=== PATIENT | female | born 1955 | race Caucasian/White ===

== ENCOUNTER 2021-05-11 22:49 | Observation (INO) ==
[2021-05-11] MEDS ORDERED: ACETAMINOPHEN 1,000 MG/100 ML VIAL IV STA (23:23)
[2021-05-11] MEDS ORDERED: SODIUM CHLORIDE 0.9% 1000ML 1,000 ML IV SCH (23:30)
[2021-05-12 00:06] LABS: Influenza A virus by PCR Negative (Negative); Influenza B virus by PCR Negative (Negative)
[2021-05-12 00:14] LABS: Basophils # (auto) 0.03 K/uL (0-0.2); Basophils % (auto) 0.2 %; Eosinophils # (auto) 0.12 K/uL (0-0.5); Eosinophils % (auto) 0.9 %; Hematocrit (blood only) 32.6 % (37-47); Hemoglobin 10.9 g/dL (12.0-16.0); Immature Granulocytes # (auto) 0.05 K/uL (0.00-0.02); Immature Granulocytes % (auto) 0.4 %; Lymphocytes # (auto) 1.26 K/uL (1.2-3.4); Mean Corpuscular Hemoglobin 30.7 pg (25-34); Mean Corpuscular Hgb Conc 33.4 g/dL (32-36); Mean Corpuscular Volume 91.8 fL (80-100); Mean Platelet Volume 8.5 fL (7.4-10.4); Monocytes % (auto) 7.1 %; Neutrophils # (auto) 10.29 K/uL (1.4-6.5); Neutrophils % (auto) 81.4 %; Platelet Count 611 K/uL (130-400); RDW Coefficient of Variation 16.1 % (11.5-14.5); RDW Standard Deviation 53.6 fL (36.4-46.3); Red Blood Count 3.55 M/uL (4.2-5.4); White Blood Count 12.65 K/uL (4.8-10.8)
[2021-05-12 00:24] LABS: Alanine Aminotransferase 48 U/L (12-78); Albumin Level 2.8 gm/dl (3.4-5.0); Aspartate Aminotransferase 16 U/L (15-37); BUN Creatinine Ratio 28.4 (10-20); Blood Urea Nitrogen 18 mg/dl (7-18); Calcium 9.5 mg/dl (8.5-10.1); Carbon Dioxide 26 mmol/L (21-32); Chloride 102 mmol/L (98-107); Creatinine Clr Calc Pharmacy 71.5 ml/min; Est GFR (African American) 107.8 ml/min; Glucose 139 mg/dl (70-99); Lipase 151 U/L (73-393); Magnesium 2.3 mg/dl (1.8-2.4); Potassium 4.1 mmol/L (3.5-5.1); Sodium 135 mmol/L (136-145)
[2021-05-12 00:25] LABS: Monotest Negative (Negative)
[2021-05-12 00:33] LABS: Albumin Globulin Ratio 0.6 (0.9-2); Alkaline Phosphatase 306 U/L (45-117); Bilirubin,Total 0.2 mg/dl (0.2-1); Globulin 4.9 gm/dl (2.5-4.0); Thyroid Stimulating Hormone < 0.005 uIu/ml (0.300-4.500); Total Protein 7.7 gm/dl (6.4-8.2); Troponin I < 0.015 ng/ml (0-0.045)
[2021-05-12 00:44] LABS: Procalcitonin 0.05 ng/ml (0-0.5)
[2021-05-12 00:50] LABS: T4 Free Thyroxine 5.93 ng/dl (0.8-1.6)
[2021-05-12 00:52] LABS: Lyme Ab IgG w/WB Rflx Negative (Negative); Lyme Ab IgM w/WB Rflx Negative (Negative)
[2021-05-12 01:14] LABS: Partial Thromboplastin Ratio 1.1; Partial Thromboplastin Time 28.9 Seconds (21.0-31.0); Prothrombin Time 10.6 Seconds (9.0-12.0)
[2021-05-12 01:15] LABS: Appearance Urine Clear (Clear); Bilirubin Urine Negative (Negative); Blood Urine Negative (Negative); Color Urine Yellow; Glucose Urine UA Negative (Negative); Ketones Urine Negative (Negative); Leukocyte Esterase Urine Negative (Negative); Nitrite Urine Negative (Negative); Protein Urine Negative (Negative); Specific Gravity Urine 1.005 (1.000-1.030); Urobilinogen Urine Negative (Negative); pH Urine 5.5 (4.5-7.5)
[2021-05-12 01:16] LABS: D Dimer 730 ug/L FEU (0-500)
[2021-05-12] MEDS ORDERED: MoRPHine SULFATE 4 MG/ML 1 ML CARP\\VIAL IV STA (01:53)
[2021-05-12] MEDS ORDERED: ONDANSETRON INJ 2 MG/ML 2 ML VIAL IV STA (01:53)
[2021-05-12 02:13] LABS: RBC Morphology Unremarkable
[2021-05-12] MEDS ORDERED: OPTIRAY 320 125ml IV ONE (02:27)
--- NOTE | 2021-05-12 04:22 | History & Physical Report ---
Date of Service May 12, 2021 Assessment & Plan (1) Elevated serum free T4 level: 66 yo F with persistent fevers, chills, abnormal lab findings undergoing workup for possible CLL. 1. Elevated Free T4 - TSH <0.0005, Free T4 5.93, Free T3 12.66 - Thyroid stimulating immunoglobulin, Thyroid antimicrosomal, Thyroglobulin antibody - unlikely thyroid storm given normal blood pressures. Not taking exogenous levothyroxine. - NM thyroid uptake scan ordered to evaluate for hot nodules. CT soft tissue negative for abnormal soft tissue mass. - ESR, CRP elevated -- autoimmune thyroiditis? vs persisting viral thyroiditis 2. Fever of unknown origin - Augmentin BID for presumed sinus/URI symptoms that have started clearing since yesterday - WBC elevated, UA negative, - lyme negative, anaplasma pending 3. Abnormal labs - elevated D-dimer --> CTA chest negative for PE - ESR and CRP elevations, see above for autoimmune workup - thrombocytosis -- chronic,undergoing workup. Patient had an appiontment with Dr. Negro of [facility] in february 2021 but unable to find a note from that visit in system. DVT ppx: lovenox FEN/GI: zofran, famotidine Code Status: Full Code Dispo: PCU (2) Fever: History of Present Illness 66 yo F [facility] patient undergoing workup for CLL/persistent thrombocytosis, with recent complaints of fever/chills/aches/ for the past 12 days. Recently started on augmentin for persistent fevers and chills. Says she's been feel her heart race more frequently, and gets short of breath when walking outside, when lifting things. extensive hx of persistent headaches, numbness and tingling in fingers due to raynauds. Primary Care Provider: Arnulfo Dolan MD Allergies Allergy/AdvReac Type Severity Reaction Status Date / Time bee venom protein (honey bee) Allergy Severe ITCHY Verified 05/12/21 00:32 HIVES ALL OVER, TONGUE SWELLED procaine [From Novocain] AdvReac Severe PALPITATIONS/ Verified 05/12/21 00:32 PASSED OUT Home Medications Medication Instructions Recorded Confirmed Type heyerao-uhtnnglrucixl-fqlgojyw 2 tab PO Q6H PRN 05/05/21 05/12/21 History [Excedrin Extra Strength] cholecalciferol (vitamin D3) 250 mcg PO Q OTHER DAY 05/05/21 05/12/21 History [Vitamin D3] multivitamin 1 tab PO DAILY 05/05/21 05/12/21 History vitamin B complex 1 tab PO DAILY 05/05/21 05/12/21 History albuterol sulfate 2 puff INHALATION Q6H PRN 05/12/21 05/12/21 History amoxicillin-pot clavulanate 1 tab PO BID 05/12/21 05/12/21 History [Augmentin] codeine-guaifenesin 5 ml PO Q4H PRN 05/12/21 05/12/21 History epinephrine [EpiPen 2-Renan] 0.3 mg IM DIRECTED PRN 05/12/21 05/12/21 History Past Med/Surg History Medical History No pertinent past medical history Surgical History No pertinent past surgical history Social History Smoking Status: Former smoker Second Hand Exposure: No; Hx Substance Use: No Preferred Language: Sammarinese Beliefs That Will Affect Care: None Current Living Situation: Spouse Other Information That Helps Us Care for You: No Feels Safe at Home: Yes Safety Concerns: Feels Safe At This Time Assistive Devices: Glasses Review of Systems Constitutional: + sweats and + fatigue; no fever and no chills Eyes: no blind spots, no discharge, no spots in vision and no worsening vision Respiratory: + cough; no dyspnea Cardiovascular: no chest pain, no dyspnea on exertion and no edema Gastrointestinal: + nausea, + vomiting and + diarrhea/loose stools; no abdominal pain, no constipation and no blood in stools Neurologic: + tingling, + numbness and + headache(s) Physical Exam Physical Exam: Constitutional: fatigued appearing, sitting comfortably in bed. Eyes: EOMI, pupils equal and reactive bilaterally, no scleral icterus Cardiac: RRR, no murmurs, gallops or rubs. Normal S1, S2 Pulm: CTA BL, no wheezes, rhonchi, crackles or rubs, moving air well throughout both lungs Abd: soft, nontender, nondistended, normal bowel sounds, no rebound or guarding Extremities: 2+ peripheral pulses, no edema Neuro: no focal deficits, moving all 4 limbs, A&Ox3 Results & Data Results & Data ([facility]) Vital Signs (Past 12 Hours) Vital Signs Temp Pulse Pulse Resp BP BP Pulse Ox 05/12/21 04:16 82 20 125/77 95 05/12/21 02:44 96 H 20 112/64 94 05/12/21 02:04 110 H 20 126/83 97 05/12/21 01:31 102 H 20 109/55 L 98 05/12/21 00:58 98 H 20 100/54 L 99 05/12/21 00:14 94 H 20 117/67 98 05/11/21 23:43 98 05/11/21 23:42 113 H 20 105/75 98 05/11/21 22:53 36.3 C L 131 H 16 134/73 94 Laboratory Results WBC 12.65 K/uL (4.8-10.8) H 05/11/21 23:37 RBC 3.55 M/uL (4.2-5.4) L 05/11/21 23:37 Hgb 10.9 g/dL (12.0-16.0) L 05/11/21 23:37 Hct 32.6 % (37-47) L 05/11/21 23:37 MCV 91.8 fL (80-100) 05/11/21 23:37 MCH 30.7 pg (25-34) 05/11/21 23:37 MCHC 33.4 g/dL (32-36) 05/11/21 23:37 RDW Std Deviation 53.6 fL (36.4-46.3) H 05/11/21 23:37 RDW Coeff of Kavon 16.1 % (11.5-14.5) H 05/11/21 23:37 Plt Count 611 K/uL (130-400) H 05/11/21 23:37 MPV 8.5 fL (7.4-10.4) 05/11/21 23:37 Immature Gran % (Auto) 0.4 % 05/11/21 23:37 Neut % (Auto) 81.4 % 05/11/21 23:37 Lymph % (Auto) 10.0 % 05/11/21 23:37 [place] % (Auto) 7.1 % 05/11/21 23:37 Eos % (Auto) 0.9 % 05/11/21 23:37 Baso % (Auto) 0.2 % 05/11/21 23:37 Neut # (Auto) 10.29 K/uL (1.4-6.5) H 05/11/21 23:37 Lymph # (Auto) 1.26 K/uL (1.2-3.4) 05/11/21 23:37 [place] # (Auto) 0.90 K/uL (0.11-0.59) H 05/11/21 23:37 Eos # (Auto) 0.12 K/uL (0-0.5) 05/11/21 23:37 Baso # (Auto) 0.03 K/uL (0-0.2) 05/11/21 23:37 Immature Gran # (Auto) 0.05 K/uL (0.00-0.02) H 05/11/21 23:37 RBC Morphology Unremarkable 05/11/21 23:37 ESR 121 mm/hr (0-30) H 05/11/21 23:37 PT 10.6 Seconds (9.0-12.0) 05/11/21 23:37 INR 1.0 (0.9-1.1) 05/11/21 23:37 APTT 28.9 Seconds (21.0-31.0) 05/11/21 23:37 PTT Ratio 1.1 05/11/21 23:37 D-Dimer 730 ug/L FEU (0-500) H* 05/11/21 23:37 Sodium 135 mmol/L (136-145) L 05/11/21 23:37 Potassium 4.1 mmol/L (3.5-5.1) 05/11/21 23:37 Chloride 102 mmol/L (98-107) 05/11/21 23:37 Carbon Dioxide 26 mmol/L (21-32) 05/11/21 23:37 Anion Gap 6.0 (3-11) 05/11/21 23:37 BUN 18 mg/dl (7-18) 05/11/21 23:37 Creatinine 0.64 mg/dl (0.6-1.2) 05/11/21 23:37 Est Cr Clr Drug Dosing 71.5 ml/min 05/11/21 23:37 Est GFR ( Amer) 107.8 ml/min 05/11/21 23:37 Est GFR (Non-Af Amer) 93.0 ml/min 05/11/21 23:37 BUN/Creatinine Ratio 28.4 (10-20) H 05/11/21 23:37 Glucose 139 mg/dl (70-99) H 05/11/21 23:37 Lactate 0.8 mmol/L (0.4-2.0) 05/11/21 23:37 Calcium 9.5 mg/dl (8.5-10.1) 05/11/21 23:37 Magnesium 2.3 mg/dl (1.8-2.4) 05/11/21 23:37 Total Bilirubin 0.2 mg/dl (0.2-1) 05/11/21 23:37 AST 16 U/L (15-37) 05/11/21 23:37 ALT 48 U/L (12-78) 05/11/21 23:37 Alkaline Phosphatase 306 U/L (45-117) H 05/11/21 23:37 Troponin I < 0.015 ng/ml (0-0.045) 05/11/21 23:37 C-Reactive Protein 11.70 mg/dl (0-0.29) H 05/11/21 23:37 Total Protein 7.7 gm/dl (6.4-8.2) 05/11/21 23:37 Albumin 2.8 gm/dl (3.4-5.0) L 05/11/21 23:37 Globulin 4.9 gm/dl (2.5-4.0) H 05/11/21 23:37 Albumin/Globulin Ratio 0.6 (0.9-2) L 05/11/21 23:37 Lipase 151 U/L (73-393) 05/11/21 23:37 Procalcitonin 0.05 ng/ml (0-0.5) 05/11/21 23:37 TSH < 0.005 uIu/ml (0.300-4.500) L 05/11/21 23:37 Free T4 5.93 ng/dl (0.8-1.6) H 05/11/21 23:37 Free T3 12.66 pg/ml (2.3-4.2) H 05/11/21 23:37 Urine Color Yellow 05/12/21 01:00 Urine Appearance Clear (Clear) 05/12/21 01:00 Urine pH 5.5 (4.5-7.5) 05/12/21 01:00 Ur Specific [place] 1.005 (1.000-1.030) 05/12/21 01:00 Urine Protein Negative (Negative) 05/12/21 01:00 Urine Glucose (UA) Negative (Negative) 05/12/21 01:00 Urine Ketones Negative (Negative) 05/12/21 01:00 Urine Blood Negative (Negative) 05/12/21 01:00 Urine Nitrite Negative (Negative) 05/12/21 01:00 Urine Bilirubin Negative (Negative) 05/12/21 01:00 Urine Urobilinogen Negative (Negative) 05/12/21 01:00 Ur Leukocyte Esterase Negative (Negative) 05/12/21 01:00 Anaplasma Smear See Comment 05/11/21 23:37 Lyme Disease IgG Ab Cancelled 05/11/21 23:37 Lyme Disease IgG Ab Negative (Negative) 05/11/21 23:37 Lyme Disease IgM Ab Cancelled 05/11/21 23:37 Lyme Disease IgM Ab Negative (Negative) 05/11/21 23:37 COVID-19 Eval Order Covid19 at [facility] 05/11/21 23:41 SARS-CoV-2 (PCR) NEGATIVE (Negative) 05/11/21 23:41 Monoscreen Cancelled 05/11/21 23:37 Monoscreen Negative (Negative) 05/11/21 23:37 Influ A Molecular Assay Negative (Negative) 05/11/21 23:41 Influ B Molecular Assay Negative (Negative) 05/11/21 23:41 Supervising Physician Co-Signing Physician Notes Attending addendum: I have physically seen this patient, have supervised the medical residents activities, and agree with the H&P unless as otherwise noted. Assessment and Plan: Hyperthyroidism/thyrotoxicosis- TSH less than 0.005, free T4 5.93, free T3 12.66 Differential includes: Viral thyroiditis/Elvin's/Graves'/other CT scan soft tissues neck was negative Order ultrasound of thyroid and thyroid uptake scan Start methimazole after the above tests Patient did have what sounds like a viral prodrome. Will need a follow-up endocrinology appointment Remaining orders and notations as noted Resident Activity Tracking Resident Involvement: Resident Care Provided Care Provided: [facility]
--- NOTE | 2021-05-12 05:49 | Emergency Department Note ---
History of Present Illness General Chief complaint: Fever Stated complaint: FEVER Time Seen by Provider: 05/11/21 23:08 History of Present Illness Maximum Pain Intensity: 2 This is a 66-year-old female presenting to the emergency department for evaluation of ongoing and persistent fever symptoms for the past 12 days. The patient was initially seen and evaluated in this department with similar complaints 1 week ago. At that visit the patient had a normal white blood cell count, mildly atypical thyroid function studies, negative Covid, and unremarkable chest x-ray. She was started on Zithromax and given Tessalon Perles. The patient followed up with her primary care physician's office this week, where she was transitioned to Augmentin and given cough medicine. Her PCP did help get her a follow-up appointment with endocrinology regarding her thyroid. The patient feels like the Augmentin is giving her diarrhea. She returns to the emergency department tonight with reports of having a fever of 103.0 F at home. The patient lives in [place], and took Advil before getting i n the car with her and coming to this facility. Upon arrival her fever is resolved, but she continues with a racing heart rate. The patient continues with some vague chest discomfort but no significant abdominal pain. There is reports of some mild headache which is common for her. The patient does not have any known exposures to disease. She rates her overall discomfort an 8/10. Home Medications Medication Instructions Recorded Confirmed Type hhdmnxi-xydycldiftchi-rhekwpmx 2 tab PO Q6H PRN 05/05/21 05/12/21 History [Excedrin Extra Strength] cholecalciferol (vitamin D3) 250 mcg PO Q OTHER DAY 05/05/21 05/12/21 History [Vitamin D3] multivitamin 1 tab PO DAILY 05/05/21 05/12/21 History vitamin B complex 1 tab PO DAILY 05/05/21 05/12/21 History albuterol sulfate 2 puff INHALATION Q6H PRN 05/12/21 05/12/21 History amoxicillin-pot clavulanate 1 tab PO BID 05/12/21 05/12/21 History [Augmentin] codeine-guaifenesin 5 ml PO Q4H PRN 05/12/21 05/12/21 History epinephrine [EpiPen 2-Renan] 0.3 mg IM DIRECTED PRN 05/12/21 05/12/21 History Allergies Allergy/AdvReac Type Severity Reaction Status Date / Time bee venom protein (honey bee) Allergy Severe ITCHY Verified 05/12/21 00:32 HIVES ALL OVER, TONGUE SWELLED procaine [From Novocain] AdvReac Severe PALPITATIONS/ Verified 05/12/21 00:32 PASSED OUT Past Med/Surg History Medical History No pertinent past medical history Surgical History No pertinent past surgical history Social History Smoking Status: Former smoker Second Hand Exposure: No; Hx Substance Use: No Preferred Language: Serbian Beliefs That Will Affect Care: None Current Living Situation: Spouse Other Information That Helps Us Care for You: No Feels Safe at Home: Yes Safety Concerns: Feels Safe At This Time Assistive Devices: Contacts Review of Systems A total of 10 systems reviewed and were otherwise negative Physical Exam Vital Signs Vital Signs - 24 hr 05/11/21 22:53 05/11/21 23:42 05/11/21 23:43 Temperature 36.3 C L Temperature Source Temporal Artery Scan Pulse Rate 131 H Pulse Rate [Bilateral Apical] 113 H Pulse Rhythm Regular Pulse Strength Normal Respiratory Rate 16 20 Respiratory Effort / Characteristics Non-Labored Respiratory Depth Normal Respiratory Pattern Regular Blood Pressure 134/73 Blood Pressure [Left Arm] 105/75 Blood Pressure Mean 93 Blood Pressure Mean [Left Arm] 85 Blood Pressure Position Sitting Pulse Oximetry 94 98 98 Oxygen Delivery Method Room Air Room Air Sepsis Recent Fever Within 48 Hours Yes Sepsis New/Unexplained Change in Mental Status N/A Sepsis Action Taken by Nursing No Action Required 05/12/21 00:14 05/12/21 00:58 05/12/21 01:31 Temperature Temperature Source Pulse Rate Pulse Rate [Bilateral Apical] 94 H 98 H 102 H Pulse Rhythm Pulse Strength Respiratory Rate 20 20 20 Respiratory Effort / Characteristics Respiratory Depth Respiratory Pattern Blood Pressure Blood Pressure [Left Arm] 117/67 100/54 L 109/55 L Blood Pressure Mean Blood Pressure Mean [Left Arm] 83 69 73 Blood Pressure Position Pulse Oximetry 98 99 98 Oxygen Delivery Method Sepsis Recent Fever Within 48 Hours Sepsis New/Unexplained Change in Mental Status Sepsis Action Taken by Nursing 05/12/21 02:04 05/12/21 02:44 Temperature Temperature Source Pulse Rate Pulse Rate [Bilateral Apical] 110 H 96 H Pulse Rhythm Pulse Strength Respiratory Rate 20 20 Respiratory Effort / Characteristics Respiratory Depth Respiratory Pattern Blood Pressure Blood Pressure [Left Arm] 126/83 112/64 Blood Pressure Mean Blood Pressure Mean [Left Arm] 97 80 Blood Pressure Position Pulse Oximetry 97 94 Oxygen Delivery Method Room Air Room Air Sepsis Recent Fever Within 48 Hours Sepsis New/Unexplained Change in Mental Status Sepsis Action Taken by Nursing VITALS: Vitals are noted on the nurse's note and reviewed by myself. Vital signs with noted tachycardia GENERAL: Well-developed, well-nourished, white female who appears mildly ill but not toxic. She is answering questions appropriately and is cooperative with the examination. NECK: Supple without nuchal rigidity. No lymphadenopathy. No thyromegaly. Cervical spine is nontender. HEART: Regular rate and rhythm without murmurs gallops or rubs. LUNGS: Clear to auscultation bilaterally without wheezes, rales or rhonchi. No retractions or accessory muscle use. ABDOMEN: Positive normal bowel sounds x 4. Soft, nontender, without masses or organomegaly. No guarding or rebound tenderness. MUSCULOSKELETAL: No muscle atrophy, erythema, or edema noted. Full range of motion in all extremities. NEURO: Patient was alert and oriented to person place and time. CN II through XII grossly intact. Course Administered Medications Doxycycline Hyclate (Doxycycline Hyclate 100 Mg Cap) 100 mg PO BID JOAN Stop: 05/14/21 09:44 Last Admin: 05/12/21 20:42 Dose: 100 mg Documented by: [id number] Admin: 05/12/21 11:25 Dose: 100 mg Documented by: [id number] Metoprolol Tartrate (Metoprolol Tartrate 25 Mg Tab) 25 mg PO Q8H JOAN Stop: 06/11/21 15:59 Last Admin: 05/12/21 16:47 Dose: 25 mg Documented by: [id number] Ondansetron HCl (Ondansetron Inj 2 Mg/Ml 2 Ml Vial) 4 mg IV Q4H PRN PRN Reason: Nausea Stop: 06/11/21 11:25 Last Admin: 05/12/21 12:01 Dose: 4 mg Documented by: [id number] Discontinued Medications Amoxicillin/Clavulanate Potassium (Amoxicillin/Clavulanate 875 Mg Tab) 1 tab PO BIDM [facility] Stop: 05/17/21 17:01 Last Admin: 05/12/21 09:18 Dose: Not Given Documented by: [id number] Sodium Chloride (Nss 1000ml) 1,000 mls @ 999 mls/hr IV .Q1H1M JOAN Stop: 05/12/21 00:30 Last Infusion: 05/12/21 00:49 Dose: 0 mls/hr Documented by: [id number] Admin: 05/11/21 23:46 Dose: 999 mls/hr Documented by: [id number] Acetaminophen ([facility]) 1,000 mg in 100 mls @ 400 mls/hr IV NOW STA Stop: 05/11/21 23:37 Last Infusion: 05/12/21 00:15 Dose: 0 mls/hr Documented by: [id number] Admin: 05/11/21 23:46 Dose: 400 mls/hr Documented by: [id number] Ioversol (Optiray 320 125ml) 120 ml IV ONCE ONE Stop: 05/12/21 02:28 Last Admin: 05/12/21 02:28 Dose: 120 ml Documented by: [id number] Metoprolol Tartrate (Metoprolol Tartrate 25 Mg Tab) 25 mg PO QAM [facility] Stop: 06/11/21 09:44 Last Admin: 05/12/21 11:24 Dose: 25 mg Documented by: [id number] Morphine Sulfate (Morphine Sulfate 4 Mg/Ml 1 Ml Carp\Vial) 4 mg IV NOW STA Stop: 05/12/21 01:54 Last Admin: 05/12/21 02:02 Dose: 4 mg Documented by: [id number] Ondansetron HCl (Ondansetron Inj 2 Mg/Ml 2 Ml Vial) 4 mg IV NOW STA Stop: 05/12/21 01:54 Last Admin: 05/12/21 02:02 Dose: 4 mg Documented by: [id number] Medical Decision Making Differential Diagnosis Differential diagnosis includes, but is not limited to: Viral illness, COVID-19, sepsis, autoimmune disease, myocardial infarction, dysrhythmia, pericarditis, pneumothorax, aortic aneurysm/dissection, DVT/PE, anxiety, GERD, PUD, electrolyte imbalance, thyroid disorder, pneumonia, bronchitis, pancreatitis, and others Laboratory Data Result diagrams: 05/12/21 06:38 05/12/21 06:38 Lab Results 05/11/21 05/11/21 05/11/21 Range/Units 23:37 23:37 23:37 WBC 12.65 H (4.8-10.8) K/uL RBC 3.55 L (4.2-5.4) M/uL Hgb 10.9 L (12.0-16.0) g/dL Hct 32.6 L (37-47) % MCV 91.8 (80-100) fL MCH 30.7 (25-34) pg MCHC 33.4 (32-36) g/dL RDW Std Deviation 53.6 H (36.4-46.3) fL RDW Coeff of Kavon 16.1 H (11.5-14.5) % Plt Count 611 H (130-400) K/uL MPV 8.5 (7.4-10.4) fL Immature Gran % (Auto) 0.4 % Neut % (Auto) 81.4 % Lymph % (Auto) 10.0 % [place] % (Auto) 7.1 % Eos % (Auto) 0.9 % Baso % (Auto) 0.2 % Neut # (Auto) 10.29 H (1.4-6.5) K/uL Lymph # (Auto) 1.26 (1.2-3.4) K/uL [place] # (Auto) 0.90 H (0.11-0.59) K/uL Eos # (Auto) 0.12 (0-0.5) K/uL Baso # (Auto) 0.03 (0-0.2) K/uL Immature Gran # (Auto) 0.05 H (0.00-0.02) K/uL RBC Morphology Unremarkable ESR (0-30) mm/hr PT 10.6 (9.0-12.0) Seconds INR 1.0 (0.9-1.1) APTT 28.9 (21.0-31.0) Seconds PTT Ratio 1.1 D-Dimer 730 H* (0-500) ug/L FEU Sodium 135 L (136-145) mmol/L Potassium 4.1 (3.5-5.1) mmol/L Chloride 102 (98-107) mmol/L Carbon Dioxide 26 (21-32) mmol/L Anion Gap 6.0 (3-11) BUN 18 (7-18) mg/dl Creatinine 0.64 (0.6-1.2) mg/dl Est Cr Clr Drug Dosing 71.5 ml/min Est GFR ( Amer) 107.8 ml/min Est GFR (Non-Af Amer) 93.0 ml/min BUN/Creatinine Ratio 28.4 H (10-20) Glucose 139 H (70-99) mg/dl Lactate (0.4-2.0) mmol/L Calcium 9.5 (8.5-10.1) mg/dl Magnesium 2.3 (1.8-2.4) mg/dl Total Bilirubin 0.2 (0.2-1) mg/dl AST 16 (15-37) U/L ALT 48 (12-78) U/L Alkaline Phosphatase 306 H (45-117) U/L Troponin I < 0.015 (0-0.045) ng/ml C-Reactive Protein 11.70 H (0-0.29) mg/dl Total Protein 7.7 (6.4-8.2) gm/dl Albumin 2.8 L (3.4-5.0) gm/dl Globulin 4.9 H (2.5-4.0) gm/dl Albumin/Globulin Ratio 0.6 L (0.9-2) Lipase 151 (73-393) U/L Procalcitonin (0-0.5) ng/ml TSH < 0.005 L (0.300-4.500) uIu/ml Free T4 5.93 H (0.8-1.6) ng/dl Free T3 (2.3-4.2) pg/ml Urine Color Urine Appearance (Clear) Urine pH (4.5-7.5) Ur Specific [place] (1.000-1.030) Urine Protein (Negative) Urine Glucose (UA) (Negative) Urine Ketones (Negative) Urine Blood (Negative) Urine Nitrite (Negative) Urine Bilirubin (Negative) Urine Urobilinogen (Negative) Ur Leukocyte Esterase (Negative) Anaplasma Smear See Comment Lyme Disease IgG Ab Lyme Disease IgM Ab COVID-19 Eval Order SARS-CoV-2 (PCR) (Negative) Monoscreen Influ A Molecular Assay (Negative) Influ B Molecular Assay (Negative) 05/11/21 05/11/21 05/11/21 Range/Units 23:37 23:37 23:37 WBC (4.8-10.8) K/uL RBC (4.2-5.4) M/uL Hgb (12.0-16.0) g/dL Hct (37-47) % MCV (80-100) fL MCH (25-34) pg MCHC (32-36) g/dL RDW Std Deviation (36.4-46.3) fL RDW Coeff of Kavon (11.5-14.5) % Plt Count (130-400) K/uL MPV (7.4-10.4) fL Immature Gran % (Auto) % Neut % (Auto) % Lymph % (Auto) % [place] % (Auto) % Eos % (Auto) % Baso % (Auto) % Neut # (Auto) (1.4-6.5) K/uL Lymph # (Auto) (1.2-3.4) K/uL [place] # (Auto) (0.11-0.59) K/uL Eos # (Auto) (0-0.5) K/uL Baso # (Auto) (0-0.2) K/uL Immature Gran # (Auto) (0.00-0.02) K/uL RBC Morphology ESR 121 H (0-30) mm/hr PT (9.0-12.0) Seconds INR (0.9-1.1) APTT (21.0-31.0) Seconds PTT Ratio D-Dimer (0-500) ug/L FEU Sodium (136-145) mmol/L Potassium (3.5-5.1) mmol/L Chloride (98-107) mmol/L Carbon Dioxide (21-32) mmol/L Anion Gap (3-11) BUN (7-18) mg/dl Creatinine (0.6-1.2) mg/dl Est Cr Clr Drug Dosing ml/min Est GFR ( Amer) ml/min Est GFR (Non-Af Amer) ml/min BUN/Creatinine Ratio (10-20) Glucose (70-99) mg/dl Lactate 0.8 (0.4-2.0) mmol/L Calcium (8.5-10.1) mg/dl Magnesium (1.8-2.4) mg/dl Total Bilirubin (0.2-1) mg/dl AST (15-37) U/L ALT (12-78) U/L Alkaline Phosphatase (45-117) U/L Troponin I (0-0.045) ng/ml C-Reactive Protein (0-0.29) mg/dl Total Protein (6.4-8.2) gm/dl Albumin (3.4-5.0) gm/dl Globulin (2.5-4.0) gm/dl Albumin/Globulin Ratio (0.9-2) Lipase (73-393) U/L Procalcitonin (0-0.5) ng/ml TSH (0.300-4.500) uIu/ml Free T4 (0.8-1.6) ng/dl Free T3 (2.3-4.2) pg/ml Urine Color Urine Appearance (Clear) Urine pH (4.5-7.5) Ur Specific [place] (1.000-1.030) Urine Protein (Negative) Urine Glucose (UA) (Negative) Urine Ketones (Negative) Urine Blood (Negative) Urine Nitrite (Negative) Urine Bilirubin (Negative) Urine Urobilinogen (Negative) Ur Leukocyte Esterase (Negative) Anaplasma Smear Lyme Disease IgG Ab Cancelled Lyme Disease IgM Ab Cancelled COVID-19 Eval Order SARS-CoV-2 (PCR) (Negative) Monoscreen Cancelled Influ A Molecular Assay (Negative) Influ B Molecular Assay (Negative) 05/11/21 05/11/21 05/11/21 Range/Units 23:37 23:37 23:41 WBC (4.8-10.8) K/uL RBC (4.2-5.4) M/uL Hgb (12.0-16.0) g/dL Hct (37-47) % MCV (80-100) fL MCH (25-34) pg MCHC (32-36) g/dL RDW Std Deviation (36.4-46.3) fL RDW Coeff of Kavon (11.5-14.5) % Plt Count (130-400) K/uL MPV (7.4-10.4) fL Immature Gran % (Auto) % Neut % (Auto) % Lymph % (Auto) % [place] % (Auto) % Eos % (Auto) % Baso % (Auto) % Neut # (Auto) (1.4-6.5) K/uL Lymph # (Auto) (1.2-3.4) K/uL [place] # (Auto) (0.11-0.59) K/uL Eos # (Auto) (0-0.5) K/uL Baso # (Auto) (0-0.2) K/uL Immature Gran # (Auto) (0.00-0.02) K/uL RBC Morphology ESR (0-30) mm/hr PT (9.0-12.0) Seconds INR (0.9-1.1) APTT (21.0-31.0) Seconds PTT Ratio D-Dimer (0-500) ug/L FEU Sodium (136-145) mmol/L Potassium (3.5-5.1) mmol/L Chloride (98-107) mmol/L Carbon Dioxide (21-32) mmol/L Anion Gap (3-11) BUN (7-18) mg/dl Creatinine (0.6-1.2) mg/dl Est Cr Clr Drug Dosing ml/min Est GFR ( Amer) ml/min Est GFR (Non-Af Amer) ml/min BUN/Creatinine Ratio (10-20) Glucose (70-99) mg/dl Lactate (0.4-2.0) mmol/L Calcium (8.5-10.1) mg/dl Magnesium (1.8-2.4) mg/dl Total Bilirubin (0.2-1) mg/dl AST (15-37) U/L ALT (12-78) U/L Alkaline Phosphatase (45-117) U/L Troponin I (0-0.045) ng/ml C-Reactive Protein (0-0.29) mg/dl Total Protein (6.4-8.2) gm/dl Albumin (3.4-5.0) gm/dl Globulin (2.5-4.0) gm/dl Albumin/Globulin Ratio (0.9-2) Lipase (73-393) U/L Procalcitonin 0.05 (0-0.5) ng/ml TSH (0.300-4.500) uIu/ml Free T4 (0.8-1.6) ng/dl Free T3 12.66 H (2.3-4.2) pg/ml Urine Color Urine Appearance (Clear) Urine pH (4.5-7.5) Ur Specific [place] (1.000-1.030) Urine Protein (Negative) Urine Glucose (UA) (Negative) Urine Ketones (Negative) Urine Blood (Negative) Urine Nitrite (Negative) Urine Bilirubin (Negative) Urine Urobilinogen (Negative) Ur Leukocyte Esterase (Negative) Anaplasma Smear Lyme Disease IgG Ab Negative Lyme Disease IgM Ab Negative COVID-19 Eval Order SARS-CoV-2 (PCR) (Negative) Monoscreen Negative Influ A Molecular Assay Negative (Negative) Influ B Molecular Assay Negative (Negative) 05/11/21 05/11/21 05/12/21 Range/Units 23:41 23:41 01:00 WBC (4.8-10.8) K/uL RBC (4.2-5.4) M/uL Hgb (12.0-16.0) g/dL Hct (37-47) % MCV (80-100) fL MCH (25-34) pg MCHC (32-36) g/dL RDW Std Deviation (36.4-46.3) fL RDW Coeff of Kavon (11.5-14.5) % Plt Count (130-400) K/uL MPV (7.4-10.4) fL Immature Gran % (Auto) % Neut % (Auto) % Lymph % (Auto) % [place] % (Auto) % Eos % (Auto) % Baso % (Auto) % Neut # (Auto) (1.4-6.5) K/uL Lymph # (Auto) (1.2-3.4) K/uL [place] # (Auto) (0.11-0.59) K/uL Eos # (Auto) (0-0.5) K/uL Baso # (Auto) (0-0.2) K/uL Immature Gran # (Auto) (0.00-0.02) K/uL RBC Morphology ESR (0-30) mm/hr PT (9.0-12.0) Seconds INR (0.9-1.1) APTT (21.0-31.0) Seconds PTT Ratio D-Dimer (0-500) ug/L FEU Sodium (136-145) mmol/L Potassium (3.5-5.1) mmol/L Chloride (98-107) mmol/L Carbon Dioxide (21-32) mmol/L Anion Gap (3-11) BUN (7-18) mg/dl Creatinine (0.6-1.2) mg/dl Est Cr Clr Drug Dosing ml/min Est GFR ( Amer) ml/min Est GFR (Non-Af Amer) ml/min BUN/Creatinine Ratio (10-20) Glucose (70-99) mg/dl Lactate (0.4-2.0) mmol/L Calcium (8.5-10.1) mg/dl Magnesium (1.8-2.4) mg/dl Total Bilirubin (0.2-1) mg/dl AST (15-37) U/L ALT (12-78) U/L Alkaline Phosphatase (45-117) U/L Troponin I (0-0.045) ng/ml C-Reactive Protein (0-0.29) mg/dl Total Protein (6.4-8.2) gm/dl Albumin (3.4-5.0) gm/dl Globulin (2.5-4.0) gm/dl Albumin/Globulin Ratio (0.9-2) Lipase (73-393) U/L Procalcitonin (0-0.5) ng/ml TSH (0.300-4.500) uIu/ml Free T4 (0.8-1.6) ng/dl Free T3 (2.3-4.2) pg/ml Urine Color Yellow Urine Appearance Clear (Clear) Urine pH 5.5 (4.5-7.5) Ur Specific [place] 1.005 (1.000-1.030) Urine Protein Negative (Negative) Urine Glucose (UA) Negative (Negative) Urine Ketones Negative (Negative) Urine Blood Negative (Negative) Urine Nitrite Negative (Negative) Urine Bilirubin Negative (Negative) Urine Urobilinogen Negative (Negative) Ur Leukocyte Esterase Negative (Negative) Anaplasma Smear Lyme Disease IgG Ab Lyme Disease IgM Ab COVID-19 Eval Order Covid19 at [facility] SARS-CoV-2 (PCR) NEGATIVE (Negative) Monoscreen Influ A Molecular Assay (Negative) Influ B Molecular Assay (Negative) Imaging Data Radiologist's Impression: Chest X-Ray 05/11/21 23:17 SINGLE VIEW CHEST CLINICAL HISTORY: Fever. FINDINGS: An AP, portable, upright chest radiograph is compared to study dated 05/05/2021. The cardiomediastinal silhouette is unremarkable. There is mild left basilar atelectasis. The lungs and pleural spaces are otherwise clear. No pneumothorax is seen. The skeletal structures are osteopenic. The bony thorax is grossly intact. IMPRESSION: No active disease in the chest. ACT 112: Negative or not required by law. Electronically signed by: He Rousseau M.D. 05/12/2021 8:46 AM Chest CTA 05/12/21 01:32 CT ANGIOGRAM OF THE CHEST CLINICAL HISTORY: Fever. Elevated d-dimer. COMPARISON STUDY: Chest x-ray dated 05/11/2021. TECHNIQUE: Following the IV administration of 120 cc of Optiray 320, CT angiogram of the chest was performed from the upper abdomen to the thoracic inlet utilizing the pulmonary embolus protocol. Images are reviewed in the axial, sagittal, and coronal planes. 3-D MIPS images are created and assessed. IV contrast was administered without complication. A dose lowering technique was utilized adhering to the principles of ALARA. The examination is degraded by motion artifact, as well as by streak artifact from the arms which could not be elevated above the chest. FINDINGS: Thyroid: Enlarged and heterogeneous. Thoracic aorta: The thoracic aorta is normal in caliber and demonstrates standard 3-vessel arch anatomy. No dissection is seen. Pulmonary vasculature: The pulmonary trunk is normal in caliber. There are no filling defects identified in main, lobar, or segmental pulmonary branches to mcclure ggest pulmonary embolus. Heart: The heart is top normal in size and without pericardial effusion. There are scattered coronary artery calcifications. Lungs and pleural spaces: Evaluation of the lung parenchyma is degraded by motion artifact. There is moderate emphysematous change. The trachea and central airways are clear. No airspace consolidation or pleural effusion is identified. Foci of scarring/atelectasis are noted at the lung bases. A 3 mm pulmonary nodule is seen at the left apex on image #[id number]. Mediastinum: There is no mediastinal lymphadenopathy. Angie: Clear. Axillae: There is no axillary lymphadenopathy. Upper abdomen: Partially visualized upper abdominal viscera is within normal limits. Skeletal structures: The skeletal structures are osteopenic. No lytic or blastic bony lesions are seen. IMPRESSION: 1. There is no evidence of pulmonary embolus in the main, lobar, or segmental pulmonary arteries. 2. Emphysema. 3. There is no airspace consolidation or pleural effusion. 4. A 3 mm pulmonary nodule seen in the left apex. This can be followed if clinic ally warranted. See below. 5. Additional findings as above. Please refer to below summary of Fleischner criteria recommendations for follow- up of incidental CT nodules (Ernesto Wright, Guidelines for management of small pulmonary nodules detected on CT scans: A statement from the Fleischner S ociety, Radiology 237: [id number].) SOLID NODULES Solitary nodule size: <6 mm * low risk patients: no follow-up needed * high risk patients: optional CT at 12 months Solitary nodule size: 6-8 mm * low risk patients: follow-up at 6-12 months, then consider further follow-up at 18-24 months * high risk patients: initial follow-up CT at 6-12 months and then at 18-24 months if no change Solitary nodule size: >8 mm * either low or high risk patients - consider follow-up CT at 3 months, and/or CT-PET, and/or biopsy Multiple nodules size: <6 mm * low risk patients: no routine follow-up * high risk patients: optional CT at 12 months Multiple nodules size: 6-8 mm * low risk patients: follow-up at 3-6 months, then consider further follow-up at 18-24 months * high risk patients: follow-up at 3-6 months, then at 18-24 months if no change Multiple nodules size: >8 mm * low risk patients: follow-up at 3-6 months, then consider further follow-up at 18-24 months * high risk patients: follow-up at 3-6 months, then at 18-24 months if no change Note: newly detected indeterminate nodule in persons 35 years of age or older. * low risk patients: minimal or absent history of smoking and/or other known risk factors * high risk patients: history of smoking or of other known risk factors (e.g. first degree relative with lung cancer, or exposure to asbestos, radon, uranium) * if a nodule up to 8 mm is partly solid or is ground glass further follow-up is required after 24 months to exclude possible slow growing adenocarcinoma (PHUC) SUBSOLID NODULES Solitary pure ground-glass nodule * nodule size <6 mm - no CT follow-up required * nodule size >=6 mm - follow-up CT at 6-12 months, then every 2 years until 5 years Solitary part-solid nodule * nodule size <6 mm - no CT follow-up required * nodule size >=6 mm - follow-up CT at 3-6 months. If unchanged, and solid component remains <6 mm, then annual follow-up for 5 years Multiple subsolid nodules * nodule size <6 mm - follow-up CT at 3-6 months, consider further follow-up at 2 and 4 years if stable * nodule size >=6 mm - follow-up CT at 3-6 months, subsequent management based on the most suspicious nodule(s) ACT 112: Negative or not required by law. Electronically signed by: He Rousseau M.D. 05/12/2021 8:[address] 05/12/21 01:50 CT SCAN OF THE BRAIN WITHOUT IV CONTRAST CLINICAL HISTORY: Fever. COMPARISON STUDY: No priors. TECHNIQUE: Unenhanced axial CT scan of the brain is performed from the vertex to the skull base. A dose lowering technique was utilized adhering to the principles of ALARA. FINDINGS: Brain parenchyma: The brain parenchyma is normal in appearance. There is no hemorrhage, mass effect, or evidence of acute territorial ischemia by CT criteria. Caraballo-white matter differentiation is preserved. Mineralization is noted in the basal ganglia. No extra-axial fluid collection is seen. Ventricles, sulci, cisterns: Normal in configuration. Intracranial vasculature: The visualized intracranial vasculature at the skull base is normal in appearance. Calvarium: Unremarkable. Sinuses and mastoids: The visualized paranasal sinuses are clear. The mastoid air cells are well pneumatized. Orbits: The bony orbits are grossly intact. IMPRESSION: No acute intracranial abnormality. ACT 112: Negative or not required by law. Electronically signed by: He Rousseau M.D. 05/12/2021 8:32 AM Soft Tissue Neck CT 05/12/21 01:50 CT SCAN OF THE NECK WITH IV CONTRAST CLINICAL HISTORY: Fever. Elevated TSH. COMPARISON STUDY: No priors. TECHNIQUE: Following the IV administration of 120 cc of Optiray 320, CT scan of the soft tissues of the neck was performed from the skull base to the upper chest. Images are reviewed in the axial, sagittal, and coronal planes. IV contrast was administered without complication. A dose lowering technique was utilized adhering to the principles of ALARA. CT DOSE: 1016.63 mGy.cm FINDINGS: Pharynx: The pharyngeal soft tissues are normal as imaged. The pharyngeal airway is widely patent. There is no evidence of mass lesion. The vocal cords are symmetric. The parapharyngeal fat is well maintained. The prevertebral/retropharyngeal soft tissues are within normal limits. The epiglottis is normal. Lymphadenopathy: No cervical lymphadenopathy is seen. Thyroid: The thyroid gland is enlarged and heterogeneous. Salivary glands: The parotid and submandibular glands are within normal limits. Brain parenchyma: The visualized brain parenchyma at the skull base is normal in appearance. Vascular structures: The carotid arteries and jugular veins are patent bilaterally. Skeletal structures: The skeletal structures are osteopenic. Imaged portions of the calvarium at the skull base are within normal limits. The cervical spine appears intact noting multilevel spondylosis. No lytic or blastic lesion is seen. Sinuses and mastoids: The visualized paranasal sinuses are clear. The mastoid air cells are well pneumatized. Lung apices: Emphysematous change is noted in the upper lobes. Upper lobe lung parenchyma is otherwise clear as imaged. IMPRESSION: 1. No acute abnormality is identified. 2. The thyroid gland appears enlarged and heterogeneous. Correlate with serum thyroid function studies. 3. Emphysema. ACT 112: Negative or not required by law. Electronically signed by: He Rousseau M.D. 05/12/2021 7:30 AM ECG Data Attestation: I personally reviewed and interpreted this ECG as follows: Indication: + tachycardia Additional Comments: Sinus tachycardia @[address] elevation Otherwise normal ECG When compared with ECG of 05-MAY-2021 20:19, No significant change was found MDM Narrative Physical exam and history were performed. Nursing notes, EMR, and Medication List were personally reviewed. Patient appears to have fever for the past 12 days. The patient did have a temperature at home tonight of over 103 F. On arrival she is tachycardic and her fever seems to have resolved. IV access was established and labs were obtained. She was hydrated with normal saline and given IV Tylenol for comfort. An order was placed for continuous cardiac monitoring. The monitor shows a rate of 78 with normal sinus rhythm. The patient's blood work is as above and was reviewed. She does have a slightly elevated white blood cell count of 12,000. She does not have a significant anemia or gross electrolyte imbalance. Troponin x1 is negative. Lipase is n ormal. Transaminases are improved from a few days ago, but she does continue with a slightly increased alk phos. D-dimer is elevated at 730. TSH is essentially 0 based on the lab. She does have elevated free T3 and T4, both roughly 3 times the upper limit of normal on our lab. Because of her symptoms CT scan of the head, neck, and chest were performed. These were reviewed by myself and radiology essentially showing no distinct acute process. The patient does have markedly elevated laboratory markers with a sed rate of 121 and CRP of greater than 11. Lyme and Covid are negative. Anaplasma smear was unremarkable. Urine does not show gross evidence of infection. Lactic is negative with cultures pending. The patient was reevaluated multiple times throughout the course of her stay. She has several atypical findings that could be contributing to her symptoms. Thyroid storm is certainly within the differential and she is not taking any exogenous thyroid medication. The patient case was discussed with the on-call hospitalist team. Please see their dictation for further patient course, plan, and disposition. The chart was completed utilizing [employer] Voice Recognition Software. Gra mmatical errors, random word insertions, pronoun errors, and incomplete sentences are an occasional consequence of this system due to software limitations, ambient noise, and hardware issues. Any formal questions or concerns about the content, text, or information contained within the body of this dictation should be directly addressed to the provider for clarification. . Impression & Plan Fever of unknown origin, Elevated serum free T4 level, Low TSH level, Abnormal laboratory test result, Lab test negative for COVID-19 virus Discharge Plan Visit Data Chief Complaint: Fever Stated Complaint: FEVER ED Provider: Chacha Hirsch ED Midlevel Provider: Austin Guo Discharge Problem: Fever of unknown origin, Elevated serum free T4 level, Low TSH level, Abnormal laboratory test result, Lab test negative for COVID-19 virus Patient Disposition: Admitted As Inpatient Discharge Instructions Interventions: ED Discharge Assessment Last Done: 05/12/21 04:40
[2021-05-12 07:00] LABS: Basophils # (auto) 0.03 K/uL (0-0.2); Basophils % (auto) 0.5 %; Eosinophils # (auto) 0.16 K/uL (0-0.5); Eosinophils % (auto) 2.6 %; Hematocrit (blood only) 28.5 % (37-47); Hemoglobin 9.3 g/dL (12.0-16.0); Immature Granulocytes # (auto) 0.04 K/uL (0.00-0.02); Immature Granulocytes % (auto) 0.7 %; Lymphocytes # (auto) 2.21 K/uL (1.2-3.4); Lymphocytes % (auto) 36.5 %; Mean Corpuscular Hemoglobin 30.1 pg (25-34); Mean Corpuscular Hgb Conc 32.6 g/dL (32-36); Mean Corpuscular Volume 92.2 fL (80-100); Mean Platelet Volume 8.5 fL (7.4-10.4); Monocytes # (auto) 0.68 K/uL (0.11-0.59); Monocytes % (auto) 11.2 %; Neutrophils # (auto) 2.94 K/uL (1.4-6.5); Neutrophils % (auto) 48.5 %; Platelet Count 511 K/uL (130-400); RDW Coefficient of Variation 16.2 % (11.5-14.5); RDW Standard Deviation 53.9 fL (36.4-46.3); Red Blood Count 3.09 M/uL (4.2-5.4); White Blood Count 6.06 K/uL (4.8-10.8)
--- NOTE | 2021-05-12 07:31 | CT Scan Report ---
CT SCAN OF THE NECK WITH IV CONTRAST CLINICAL HISTORY: Fever. Elevated TSH. COMPARISON STUDY: No priors. TECHNIQUE: Following the IV administration of 120 cc of Optiray 320, CT scan of the soft tissues of t he neck was performed from the skull base to the upper chest. Images are reviewed in the axial, sagit rusty, and coronal planes. IV contrast was administered without complication. A dose lowering techniq ue was utilized adhering to the principles of ALARA. CT DOSE: 1016.63 mGy.cm FINDINGS: Pharynx: The pharyngeal soft tissues are normal as imaged. The pharyngeal airway is widely patent. Th ere is no evidence of mass lesion. The vocal cords are symmetric. The parapharyngeal fat is well main tained. The prevertebral/retropharyngeal soft tissues are within normal limits. The epiglottis is nor mal. Lymphadenopathy: No cervical lymphadenopathy is seen. Thyroid: The thyroid gland is enlarged and heterogeneous. Salivary glands: The parotid and submandibular glands are within normal limits. Brain parenchyma: The visualized brain parenchyma at the skull base is normal in appearance. Vascular structures: The carotid arteries and jugular veins are patent bilaterally. Skeletal structures: The skeletal structures are osteopenic. Imaged portions of the calvarium at the skull base are within normal limits. The cervical spine appears intact noting multilevel spondylosis. No lytic or blastic lesion is seen. Sinuses and mastoids: The visualized paranasal sinuses are clear. The mastoid air cells are well pneu matized. Lung apices: Emphysematous change is noted in the upper lobes. Upper lobe lung parenchyma is otherwis e clear as imaged. IMPRESSION: 1. No acute abnormality is identified. 2. The thyroid gland appears enlarged and heterogeneous. Correlate with serum thyroid function studie s. 3. Emphysema. ACT 112: Negative or not required by law. Electronically signed by: He Rousseau M.D. 05/12/2021 7:30 AM
[2021-05-12 07:39] LABS: BUN Creatinine Ratio 25.1 (10-20); Calcium 9.2 mg/dl (8.5-10.1); Creatinine Clr Calc Pharmacy 89.8 ml/min; Est GFR (African American) 116.1 ml/min; Est GFR (Non-African American) 100.2 ml/min; Potassium 4.1 mmol/L (3.5-5.1)
[2021-05-12] MEDS ORDERED: AMOXICILLIN/CLAVULANATE 875 MG TAB PO SCH (08:00)
--- NOTE | 2021-05-12 08:07 | CT Scan Report ---
CT ANGIOGRAM OF THE CHEST CLINICAL HISTORY: Fever. Elevated d-dimer. COMPARISON STUDY: Chest x-ray dated 05/11/2021. TECHNIQUE: Following the IV administration of 120 cc of Optiray 320, CT angiogram of the chest was pe rformed from the upper abdomen to the thoracic inlet utilizing the pulmonary embolus protocol. Images are reviewed in the axial, sagittal, and coronal planes. 3-D MIPS images are created and assessed. I V contrast was administered without complication. A dose lowering technique was utilized adhering to the principles of ALARA. The examination is degraded by motion artifact, as well as by streak artifa ct from the arms which could not be elevated above the chest. FINDINGS: Thyroid: Enlarged and heterogeneous. Thoracic aorta: The thoracic aorta is normal in caliber and demonstrates standard 3-vessel arch anato my. No dissection is seen. Pulmonary vasculature: The pulmonary trunk is normal in caliber. There are no filling defects identif ied in main, lobar, or segmental pulmonary branches to suggest pulmonary embolus. Heart: The heart is top normal in size and without pericardial effusion. There are scattered coronary artery calcifications. Lungs and pleural spaces: Evaluation of the lung parenchyma is degraded by motion artifact. There is moderate emphysematous change. The trachea and central airways are clear. No airspace consolidation o r pleural effusion is identified. Foci of scarring/atelectasis are noted at the lung bases. A 3 mm pu lmonary nodule is seen at the left apex on image #[id number]. Mediastinum: There is no mediastinal lymphadenopathy. Angie: Clear. Axillae: There is no axillary lymphadenopathy. Upper abdomen: Partially visualized upper abdominal viscera is within normal limits. Skeletal structures: The skeletal structures are osteopenic. No lytic or blastic bony lesions are see n. IMPRESSION: 1. There is no evidence of pulmonary embolus in the main, lobar, or segmental pulmonary arteries. 2. Emphysema. 3. There is no airspace consolidation or pleural effusion. 4. A 3 mm pulmonary nodule seen in the left apex. This can be followed if clinically warranted. See bhupinder hudson. 5. Additional findings as above. Please refer to below summary of Fleischner criteria recommendations for follow-up of incidental CT n odules (Ernesto Wright, Guidelines for management of small pulmonary nodules detected on CT scans: A sta tement from the Fleischner Society, Radiology 237: [phone].) SOLID NODULES Solitary nodule size: <6 mm * low risk patients: no follow-up needed * high risk patients: optional CT at 12 months Solitary nodule size: 6-8 mm * low risk patients: follow-up at 6-12 months, then consider further follow-up at 18-24 months * high risk patients: initial follow-up CT at 6-12 months and then at 18-24 months if no change Solitary nodule size: >8 mm * either low or high risk patients - consider follow-up CT at 3 months, and/or CT-PET, and/or biopsy Multiple nodules size: <6 mm * low risk patients: no routine follow-up * high risk patients: optional CT at 12 months Multiple nodules size: 6-8 mm * low risk patients: follow-up at 3-6 months, then consider further follow-up at 18-24 months * high risk patients: follow-up at 3-6 months, then at 18-24 months if no change Multiple nodules size: >8 mm * low risk patients: follow-up at 3-6 months, then consider further follow-up at 18-24 months * high risk patients: follow-up at 3-6 months, then at 18-24 months if no change Note: newly detected indeterminate nodule in persons 35 years of age or older. * low risk patients: minimal or absent history of smoking and/or other known risk factors * high risk patients: history of smoking or of other known risk factors (e.g. first degree relative with lung cancer, or exposure to asbestos, radon, uranium) * if a nodule up to 8 mm is partly solid or is ground glass further follow-up is required after 24 m onths to exclude possible slow growing adenocarcinoma (PHUC) SUBSOLID NODULES Solitary pure ground-glass nodule * nodule size <6 mm - no CT follow-up required * nodule size >=6 mm - follow-up CT at 6-12 months, then every 2 years until 5 years Solitary part-solid nodule * nodule size <6 mm - no CT follow-up required * nodule size >=6 mm - follow-up CT at 3-6 months. If unchanged, and solid component remains <6 mm, then annual follow-up for 5 years Multiple subsolid nodules * nodule size <6 mm - follow-up CT at 3-6 months, consider further follow-up at 2 and 4 years if sta ble * nodule size >=6 mm - follow-up CT at 3-6 months, subsequent management based on the most suspiciou s nodule(s) ACT 112: Negative or not required by law. Electronically signed by: He Rousseau M.D. 05/12/2021 8:06 AM
--- NOTE | 2021-05-12 08:33 | CT Scan Report ---
CT SCAN OF THE BRAIN WITHOUT IV CONTRAST CLINICAL HISTORY: Fever. COMPARISON STUDY: No priors. TECHNIQUE: Unenhanced axial CT scan of the brain is performed from the vertex to the skull base. A d ose lowering technique was utilized adhering to the principles of ALARA. FINDINGS: Brain parenchyma: The brain parenchyma is normal in appearance. There is no hemorrhage, mass effect, or evidence of acute territorial ischemia by CT criteria. Caraballo-white matter differentiation is preser melecio. Mineralization is noted in the basal ganglia. No extra-axial fluid collection is seen. Ventricles, sulci, cisterns: Normal in configuration. Intracranial vasculature: The visualized intracranial vasculature at the skull base is normal in appe arance. Calvarium: Unremarkable. Sinuses and mastoids: The visualized paranasal sinuses are clear. The mastoid air cells are well pneu matized. Orbits: The bony orbits are grossly intact. IMPRESSION: No acute intracranial abnormality. ACT 112: Negative or not required by law. Electronically signed by: He Rousseau M.D. 05/12/2021 8:32 AM
--- NOTE | 2021-05-12 08:47 | XRay Report ---
SINGLE VIEW CHEST CLINICAL HISTORY: Fever. FINDINGS: An AP, portable, upright chest radiograph is compared to study dated 05/05/2021. The cardiom ediastinal silhouette is unremarkable. There is mild left basilar atelectasis. The lungs and pleural spaces are otherwise clear. No pneumothorax is seen. The skeletal structures are osteopenic. The bony thorax is grossly intact. IMPRESSION: No active disease in the chest. ACT 112: Negative or not required by law. Electronically signed by: He Rousseau M.D. 05/12/2021 8:46 AM
[2021-05-12] MEDS ORDERED: METOPROLOL TARTRATE 25 MG TAB PO SCH (09:45)
--- NOTE | 2021-05-12 10:51 | Hospitalist Progress Note ---
Date of Service May 12, 2021 Assessment & Plan (1) Elevated serum free T4 level: 66 yo F with persistent fevers, chills, nausea, vomiting, abdominal pain, and cough with recent thrombocytosis causing further conversations about potential CLL Fever: - No documented fevers either since admission or in outpatient clinic; however, reported T-max of 103.8 over the last 10 days - Augmentin BID for presumed sinus/URI symptoms - Received Covid vaccinations (last dose in January) and Covid negative x2 since symptom onset - WBC elevated, UA negative, - Lyme negative, Anaplasma smear negative, mono negative, flu negative, urinalysis negative - Blood cultures pending - Discontinued Augmentin in the setting of new diarrhea - Started doxycycline given high prevalence of tickborne illnesses in this area Diarrhea: - Patient reported multiple loose stool since initiation of Augmentin on 05/08 - Continuing to have episodes while in hospital - C. difficile negative - Potentially secondary to viral process Hyperthyroidism: - Etiology uncertain at this moment time potentially secondary to viral t hyroiditis versus autoimmune thyroiditis - TSH <0.0005, Free T4 5.93, Free T3 12.66 - Thyroid stimulating immunoglobulin, Thyroid antimicrosomal, Thyroglobulin antibody sent - unlikely thyroid storm given normal blood pressures. Not taking exogenous levothyroxine. - CT soft tissue demonstrating thyromegaly - ESR, CRP elevated on admission - Given persistent tachycardia, with significant increase with minimal exertion will start on metoprolol 25 mg q8h -Potential for initiation of methimazole if not continuing to see improvement - Patient has follow-up with endocrine surgery (Dr. Nicole) on 05/18 for further outpatient evaluation of potential etiologies Thrombocytosis: - Platelets elevated on admission to [facility] - Patient had appointment at [facility] in February, had previously seen him approximately 15 years ago for similar concerns Elevated D-dimer: - 730 on admission - CTA chest negative for PE DVT ppx: lovenox FEN/GI: zofran, famotidine Code Status: Full Code (2) Fever: (3) Diarrhea: Admission and Anticipated Discharge Date Admission Date: May 12, 2021 Supervising Physician Co-Signing Physician Notes Resident Physician Supervision Note: I independently interviewed and examined the patient and verified the diaz history and physical, reviewed labs and image studies and agree with resident Dr. Dhillon findings and care plan. Subjective Patient feels like her overall energy levels have improved at this point time, however feels like she is not much better than before. Continues to have feelings of her heart racing whenever she performs any form of activity. Continues to have loose stools that she says smell tremendously, this started following administration of antibiotics on Friday. Review of Systems Review of Systems: All systems reviewed & are unremarkable except as noted in Subjective Physical Exam Constitutional: WD/WN, vitals as above Eyes: PERRL, conjunctivae normal, anicteric sclerae Neck: Thyroid: + thyromegaly and + thyroid tender Respiratory: normal respiratory effort and + prolonged expiratory phase; no respiratory distress and no labored breathing Auscultation: no crackles, no rales, no rhonchi and no wheezes Cardiovascular: Rate/Rhythm: regular rate and regular rhythm Heart Sounds: no gallop, no murmur and no cardiac rub Vessels: normal peripheral pulses; no JVD Extremities: no edema Gastrointestinal (Abdomen): Inspection/Auscultation: normal bowel sounds; abdomen not distended Percussion/Palpation: abdomen soft; abdomen nontender and no guarding Skin: no rashes, warm and dry Psychiatric: Orientation: alert and oriented x 3 Results & Data Results & Data ([facility]) Vital Signs (Past 12 Hours) Vital Signs Temp Pulse Pulse Pulse Resp BP BP 05/12/21 08:55 36.9 C 65 18 118/63 05/12/21 08:00 77 05/12/21 04:59 36.6 C 98 H 23 121/63 05/12/21 04:16 82 20 125/77 05/12/21 02:44 96 H 20 112/64 05/12/21 02:04 110 H 20 126/83 05/12/21 01:31 102 H 20 109/55 L 05/12/21 00:58 98 H 20 100/54 L 05/12/21 00:14 94 H 20 117/67 05/11/21 23:43 05/11/21 23:42 113 H 20 105/75 05/11/21 22:53 36.3 C L 131 H 16 134/73 Pulse Ox 05/12/21 08:55 94 05/12/21 08:00 05/12/21 04:59 97 05/12/21 04:16 95 05/12/21 02:44 94 05/12/21 02:04 97 05/12/21 01:31 98 05/12/21 00:58 99 05/12/21 00:14 98 05/11/21 23:43 98 05/11/21 23:42 98 05/11/21 22:53 94 Laboratory Results 05/12/21 05/12/21 05/12/21 Range/Units 11:30 06:38 06:38 WBC 6.06 (4.8-10.8) K/uL RBC 3.09 L (4.2-5.4) M/uL Hgb 9.3 L (12.0-16.0) g/dL Hct 28.5 L (37-47) % MCV 92.2 (80-100) fL MCH 30.1 (25-34) pg MCHC 32.6 (32-36) g/dL RDW Std Deviation 53.9 H (36.4-46.3) fL RDW Coeff of Kavon 16.2 H (11.5-14.5) % Plt Count 511 H (130-400) K/uL MPV 8.5 (7.4-10.4) fL Immature Gran % (Auto) 0.7 % Neut % (Auto) 48.5 % Lymph % (Auto) 36.5 % [place] % (Auto) 11.2 % Eos % (Auto) 2.6 % Baso % (Auto) 0.5 % Neut # (Auto) 2.94 (1.4-6.5) K/uL Lymph # (Auto) 2.21 (1.2-3.4) K/uL [place] # (Auto) 0.68 H (0.11-0.59) K/uL Eos # (Auto) 0.16 (0-0.5) K/uL Baso # (Auto) 0.03 (0-0.2) K/uL Immature Gran # (Auto) 0.04 H (0.00-0.02) K/uL RBC Morphology ESR (0-30) mm/hr PT (9.0-12.0) Seconds INR (0.9-1.1) APTT (21.0-31.0) Seconds PTT Ratio D-Dimer (0-500) ug/L FEU Sodium 142 D (136-145) mmol/L Potassium 4.1 (3.5-5.1) mmol/L Chloride 110 H (98-107) mmol/L Carbon Dioxide 27 (21-32) mmol/L Anion Gap 6.0 (3-11) BUN 13 (7-18) mg/dl Creatinine 0.51 L (0.6-1.2) mg/dl Est Cr Clr Drug Dosing 89.8 ml/min Est GFR ( Amer) 116.1 ml/min Est GFR (Non-Af Amer) 100.2 ml/min BUN/Creatinine Ratio 25.1 H (10-20) Glucose 121 H (70-99) mg/dl Lactate (0.4-2.0) mmol/L Calcium 9.2 (8.5-10.1) mg/dl Magnesium (1.8-2.4) mg/dl Total Bilirubin (0.2-1) mg/dl AST (15-37) U/L ALT (12-78) U/L Alkaline Phosphatase (45-117) U/L Troponin I (0-0.045) ng/ml C-Reactive Protein (0-0.29) mg/dl Total Protein (6.4-8.2) gm/dl Albumin (3.4-5.0) gm/dl Globulin (2.5-4.0) gm/dl Albumin/Globulin Ratio (0.9-2) Lipase (73-393) U/L Procalcitonin (0-0.5) ng/ml TSH (0.300-4.500) uIu/ml Free T4 (0.8-1.6) ng/dl Free T3 (2.3-4.2) pg/ml Thyroid Stim Immunoglob Urine Color Urine Appearance (Clear) Urine pH (4.5-7.5) Ur Specific [place] (1.000-1.030) Urine Protein (Negative) Urine Glucose (UA) (Negative) Urine Ketones (Negative) Urine Blood (Negative) Urine Nitrite (Negative) Urine Bilirubin (Negative) Urine Urobilinogen (Negative) Ur Leukocyte Esterase (Negative) Stl C. diff Tox B Gene Negative Cdiff Gene (Neg) Thyroid Antimicrosomal Thyroglobulin Antibody Anaplasma Smear Lyme Disease IgG Ab Lyme Disease IgM Ab COVID-19 Eval Order SARS-CoV-2 (PCR) (Negative) Monoscreen Influ A Molecular Assay (Negative) Influ B Molecular Assay (Negative) 05/12/21 05/11/21 05/11/21 Range/Units 01:00 23:41 23:41 WBC (4.8-10.8) K/uL RBC (4.2-5.4) M/uL Hgb (12.0-16.0) g/dL Hct (37-47) % MCV (80-100) fL MCH (25-34) pg MCHC (32-36) g/dL RDW Std Deviation (36.4-46.3) fL RDW Coeff of Kavon (11.5-14.5) % Plt Count (130-400) K/uL MPV (7.4-10.4) fL Immature Gran % (Auto) % Neut % (Auto) % Lymph % (Auto) % [place] % (Auto) % Eos % (Auto) % Baso % (Auto) % Neut # (Auto) (1.4-6.5) K/uL Lymph # (Auto) (1.2-3.4) K/uL [place] # (Auto) (0.11-0.59) K/uL Eos # (Auto) (0-0.5) K/uL Baso # (Auto) (0-0.2) K/uL Immature Gran # (Auto) (0.00-0.02) K/uL RBC Morphology ESR (0-30) mm/hr PT (9.0-12.0) Seconds INR (0.9-1.1) APTT (21.0-31.0) Seconds PTT Ratio D-Dimer (0-500) ug/L FEU Sodium (136-145) mmol/L Potassium (3.5-5.1) mmol/L Chloride (98-107) mmol/L Carbon Dioxide (21-32) mmol/L Anion Gap (3-11) BUN (7-18) mg/dl Creatinine (0.6-1.2) mg/dl Est Cr Clr Drug Dosing ml/min Est GFR ( Amer) ml/min Est GFR (Non-Af Amer) ml/min BUN/Creatinine Ratio (10-20) Glucose (70-99) mg/dl Lactate (0.4-2.0) mmol/L Calcium (8.5-10.1) mg/dl Magnesium (1.8-2.4) mg/dl Total Bilirubin (0.2-1) mg/dl AST (15-37) U/L ALT (12-78) U/L Alkaline Phosphatase (45-117) U/L Troponin I (0-0.045) ng/ml C-Reactive Protein (0-0.29) mg/dl Total Protein (6.4-8.2) gm/dl Albumin (3.4-5.0) gm/dl Globulin (2.5-4.0) gm/dl Albumin/Globulin Ratio (0.9-2) Lipase (73-393) U/L Procalcitonin (0-0.5) ng/ml TSH (0.300-4.500) uIu/ml Free T4 (0.8-1.6) ng/dl Free T3 (2.3-4.2) pg/ml Thyroid Stim Immunoglob Urine Color Yellow Urine Appearance Clear (Clear) Urine pH 5.5 (4.5-7.5) Ur Specific [place] 1.005 (1.000-1.030) Urine Protein Negative (Negative) Urine Glucose (UA) Negative (Negative) Urine Ketones Negative (Negative) Urine Blood Negative (Negative) Urine Nitrite Negative (Negative) Urine Bilirubin Negative (Negative) Urine Urobilinogen Negative (Negative) Ur Leukocyte Esterase Negative (Negative) Stl C. diff Tox B Gene (Neg) Thyroid Antimicrosomal Thyroglobulin Antibody Anaplasma Smear Lyme Disease IgG Ab Lyme Disease IgM Ab COVID-19 Eval Order Covid[facility] at [facility] SARS-CoV-2 (PCR) NEGATIVE (Negative) Monoscreen Influ A Molecular Assay (Negative) Influ B Molecular Assay (Negative) 05/11/21 05/11/21 05/11/21 Range/Units 23:41 23:37 23:37 WBC (4.8-10.8) K/uL RBC (4.2-5.4) M/uL Hgb (12.0-16.0) g/dL Hct (37-47) % MCV (80-100) fL MCH (25-34) pg MCHC (32-36) g/dL RDW Std Deviation (36.4-46.3) fL RDW Coeff of Kavon (11.5-14.5) % Plt Count (130-400) K/uL MPV (7.4-10.4) fL Immature Gran % (Auto) % Neut % (Auto) % Lymph % (Auto) % [place] % (Auto) % Eos % (Auto) % Baso % (Auto) % Neut # (Auto) (1.4-6.5) K/uL Lymph # (Auto) (1.2-3.4) K/uL [place] # (Auto) (0.11-0.59) K/uL Eos # (Auto) (0-0.5) K/uL Baso # (Auto) (0-0.2) K/uL Immature Gran # (Auto) (0.00-0.02) K/uL RBC Morphology ESR (0-30) mm/hr PT (9.0-12.0) Seconds INR (0.9-1.1) APTT (21.0-31.0) Seconds PTT Ratio D-Dimer (0-500) ug/L FEU Sodium (136-145) mmol/L Potassium (3.5-5.1) mmol/L Chloride (98-107) mmol/L Carbon Dioxide (21-32) mmol/L Anion Gap (3-11) BUN (7-18) mg/dl Creatinine (0.6-1.2) mg/dl Est Cr Clr Drug Dosing ml/min Est GFR ( Amer) ml/min Est GFR (Non-Af Amer) ml/min BUN/Creatinine Ratio (10-20) Glucose (70-99) mg/dl Lactate (0.4-2.0) mmol/L Calcium (8.5-10.1) mg/dl Magnesium (1.8-2.4) mg/dl Total Bilirubin (0.2-1) mg/dl AST (15-37) U/L ALT (12-78) U/L Alkaline Phosphatase (45-117) U/L Troponin I (0-0.045) ng/ml C-Reactive Protein (0-0.29) mg/dl Total Protein (6.4-8.2) gm/dl Albumin (3.4-5.0) gm/dl Globulin (2.5-4.0) gm/dl Albumin/Globulin Ratio (0.9-2) Lipase (73-393) U/L Procalcitonin (0-0.5) ng/ml TSH (0.300-4.500) uIu/ml Free T4 (0.8-1.6) ng/dl Free T3 12.66 H (2.3-4.2) pg/ml Thyroid Stim Immunoglob Pending Urine Color Urine Appearance (Clear) Urine pH (4.5-7.5) Ur Specific [place] (1.000-1.030) Urine Protein (Negative) Urine Glucose (UA) (Negative) Urine Ketones (Negative) Urine Blood (Negative) Urine Nitrite (Negative) Urine Bilirubin (Negative) Urine Urobilinogen (Negative) Ur Leukocyte Esterase (Negative) Stl C. diff Tox B Gene (Neg) Thyroid Antimicrosomal Pending Thyroglobulin Antibody Pending Anaplasma Smear Lyme Disease IgG Ab Lyme Disease IgM Ab COVID-19 Eval Order SARS-CoV-2 (PCR) (Negative) Monoscreen Influ A Molecular Assay Negative (Negative) Influ B Molecular Assay Negative (Negative) 05/11/21 05/11/21 05/11/21 Range/Units 23:37 23:37 23:37 WBC (4.8-10.8) K/uL RBC (4.2-5.4) M/uL Hgb (12.0-16.0) g/dL Hct (37-47) % MCV (80-100) fL MCH (25-34) pg MCHC (32-36) g/dL RDW Std Deviation (36.4-46.3) fL RDW Coeff of Kavon (11.5-14.5) % Plt Count (130-400) K/uL MPV (7.4-10.4) fL Immature Gran % (Auto) % Neut % (Auto) % Lymph % (Auto) % [place] % (Auto) % Eos % (Auto) % Baso % (Auto) % Neut # (Auto) (1.4-6.5) K/uL Lymph # (Auto) (1.2-3.4) K/uL [place] # (Auto) (0.11-0.59) K/uL Eos # (Auto) (0-0.5) K/uL Baso # (Auto) (0-0.2) K/uL Immature Gran # (Auto) (0.00-0.02) K/uL RBC Morphology ESR 121 H (0-30) mm/hr PT (9.0-12.0) Seconds INR (0.9-1.1) APTT (21.0-31.0) Seconds PTT Ratio D-Dimer (0-500) ug/L FEU Sodium (136-145) mmol/L Potassium (3.5-5.1) mmol/L Chloride (98-107) mmol/L Carbon Dioxide (21-32) mmol/L Anion Gap (3-11) BUN (7-18) mg/dl Creatinine (0.6-1.2) mg/dl Est Cr Clr Drug Dosing ml/min Est GFR ( Amer) ml/min Est GFR (Non-Af Amer) ml/min BUN/Creatinine Ratio (10-20) Glucose (70-99) mg/dl Lactate 0.8 (0.4-2.0) mmol/L Calcium (8.5-10.1) mg/dl Magnesium (1.8-2.4) mg/dl Total Bilirubin (0.2-1) mg/dl AST (15-37) U/L ALT (12-78) U/L Alkaline Phosphatase (45-117) U/L Troponin I (0-0.045) ng/ml C-Reactive Protein (0-0.29) mg/dl Total Protein (6.4-8.2) gm/dl Albumin (3.4-5.0) gm/dl Globulin (2.5-4.0) gm/dl Albumin/Globulin Ratio (0.9-2) Lipase (73-393) U/L Procalcitonin 0.05 (0-0.5) ng/ml TSH (0.300-4.500) uIu/ml Free T4 (0.8-1.6) ng/dl Free T3 (2.3-4.2) pg/ml Thyroid Stim Immunoglob Urine Color Urine Appearance (Clear) Urine pH (4.5-7.5) Ur Specific [place] (1.000-1.030) Urine Protein (Negative) Urine Glucose (UA) (Negative) Urine Ketones (Negative) Urine Blood (Negative) Urine Nitrite (Negative) Urine Bilirubin (Negative) Urine Urobilinogen (Negative) Ur Leukocyte Esterase (Negative) Stl C. diff Tox B Gene (Neg) Thyroid Antimicrosomal Thyroglobulin Antibody Anaplasma Smear Lyme Disease IgG Ab Negative Lyme Disease IgM Ab Negative COVID-19 Eval Order SARS-CoV-2 (PCR) (Negative) Monoscreen Negative Influ A Molecular Assay (Negative) Influ B Molecular Assay (Negative) 05/11/21 05/11/21 05/11/21 Range/Units 23:37 23:37 23:37 WBC (4.8-10.8) K/uL RBC (4.2-5.4) M/uL Hgb (12.0-16.0) g/dL Hct (37-47) % MCV (80-100) fL MCH (25-34) pg MCHC (32-36) g/dL RDW Std Deviation (36.4-46.3) fL RDW Coeff of Kavon (11.5-14.5) % Plt Count (130-400) K/uL MPV (7.4-10.4) fL Immature Gran % (Auto) % Neut % (Auto) % Lymph % (Auto) % [place] % (Auto) % Eos % (Auto) % Baso % (Auto) % Neut # (Auto) (1.4-6.5) K/uL Lymph # (Auto) (1.2-3.4) K/uL [place] # (Auto) (0.11-0.59) K/uL Eos # (Auto) (0-0.5) K/uL Baso # (Auto) (0-0.2) K/uL Immature Gran # (Auto) (0.00-0.02) K/uL RBC Morphology ESR (0-30) mm/hr PT 10.6 (9.0-12.0) Seconds INR 1.0 (0.9-1.1) APTT 28.9 (21.0-31.0) Seconds PTT Ratio 1.1 D-Dimer 730 H* (0-500) ug/L FEU Sodium 135 L (136-145) mmol/L Potassium 4.1 (3.5-5.1) mmol/L Chloride 102 (98-107) mmol/L Carbon Dioxide 26 (21-32) mmol/L Anion Gap 6.0 (3-11) BUN 18 (7-18) mg/dl Creatinine 0.64 (0.6-1.2) mg/dl Est Cr Clr Drug Dosing 71.5 ml/min Est GFR ( Amer) 107.8 ml/min Est GFR (Non-Af Amer) 93.0 ml/min BUN/Creatinine Ratio 28.4 H (10-20) Glucose 139 H (70-99) mg/dl Lactate (0.4-2.0) mmol/L Calcium 9.5 (8.5-10.1) mg/dl Magnesium 2.3 (1.8-2.4) mg/dl Total Bilirubin 0.2 (0.2-1) mg/dl AST 16 (15-37) U/L ALT 48 (12-78) U/L Alkaline Phosphatase 306 H (45-117) U/L Troponin I < 0.015 (0-0.045) ng/ml C-Reactive Protein 11.70 H (0-0.29) mg/dl Total Protein 7.7 (6.4-8.2) gm/dl Albumin 2.8 L (3.4-5.0) gm/dl Globulin 4.9 H (2.5-4.0) gm/dl Albumin/Globulin Ratio 0.6 L (0.9-2) Lipase 151 (73-393) U/L Procalcitonin (0-0.5) ng/ml TSH < 0.005 L (0.300-4.500) uIu/ml Free T4 5.93 H (0.8-1.6) ng/dl Free T3 (2.3-4.2) pg/ml Thyroid Stim Immunoglob Urine Color Urine Appearance (Clear) Urine pH (4.5-7.5) Ur Specific [place] (1.000-1.030) Urine Protein (Negative) Urine Glucose (UA) (Negative) Urine Ketones (Negative) Urine Blood (Negative) Urine Nitrite (Negative) Urine Bilirubin (Negative) Urine Urobilinogen (Negative) Ur Leukocyte Esterase (Negative) Stl C. diff Tox B Gene (Neg) Thyroid Antimicrosomal Thyroglobulin Antibody Anaplasma Smear Lyme Disease IgG Ab Cancelled Lyme Disease IgM Ab Cancelled COVID-19 Eval Order SARS-CoV-2 (PCR) (Negative) Monoscreen Cancelled Influ A Molecular Assay (Negative) Influ B Molecular Assay (Negative) 05/11/21 Range/Units 23:37 WBC 12.65 H (4.8-10.8) K/uL RBC 3.55 L (4.2-5.4) M/uL Hgb 10.9 L (12.0-16.0) g/dL Hct 32.6 L (37-47) % MCV 91.8 (80-100) fL MCH 30.7 (25-34) pg MCHC 33.4 (32-36) g/dL RDW Std Deviation 53.6 H (36.4-46.3) fL RDW Coeff of Kavon 16.1 H (11.5-14.5) % Plt Count 611 H (130-400) K/uL MPV 8.5 (7.4-10.4) fL Immature Gran % (Auto) 0.4 % Neut % (Auto) 81.4 % Lymph % (Auto) 10.0 % [place] % (Auto) 7.1 % Eos % (Auto) 0.9 % Baso % (Auto) 0.2 % Neut # (Auto) 10.29 H (1.4-6.5) K/uL Lymph # (Auto) 1.26 (1.2-3.4) K/uL [place] # (Auto) 0.90 H (0.11-0.59) K/uL Eos # (Auto) 0.12 (0-0.5) K/uL Baso # (Auto) 0.03 (0-0.2) K/uL Immature Gran # (Auto) 0.05 H (0.00-0.02) K/uL RBC Morphology Unremarkable ESR (0-30) mm/hr PT (9.0-12.0) Seconds INR (0.9-1.1) APTT (21.0-31.0) Seconds PTT Ratio D-Dimer (0-500) ug/L FEU Sodium (136-145) mmol/L Potassium (3.5-5.1) mmol/L Chloride (98-107) mmol/L Carbon Dioxide (21-32) mmol/L Anion Gap (3-11) BUN (7-18) mg/dl Creatinine (0.6-1.2) mg/dl Est Cr Clr Drug Dosing ml/min Est GFR ( Amer) ml/min Est GFR (Non-Af Amer) ml/min BUN/Creatinine Ratio (10-20) Glucose (70-99) mg/dl Lactate (0.4-2.0) mmol/L Calcium (8.5-10.1) mg/dl Magnesium (1.8-2.4) mg/dl Total Bilirubin (0.2-1) mg/dl AST (15-37) U/L ALT (12-78) U/L Alkaline Phosphatase (45-117) U/L Troponin I (0-0.045) ng/ml C-Reactive Protein (0-0.29) mg/dl Total Protein (6.4-8.2) gm/dl Albumin (3.4-5.0) gm/dl Globulin (2.5-4.0) gm/dl Albumin/Globulin Ratio (0.9-2) Lipase (73-393) U/L Procalcitonin (0-0.5) ng/ml TSH (0.300-4.500) uIu/ml Free T4 (0.8-1.6) ng/dl Free T3 (2.3-4.2) pg/ml Thyroid Stim Immunoglob Urine Color Urine Appearance (Clear) Urine pH (4.5-7.5) Ur Specific [place] (1.000-1.030) Urine Protein (Negative) Urine Glucose (UA) (Negative) Urine Ketones (Negative) Urine Blood (Negative) Urine Nitrite (Negative) Urine Bilirubin (Negative) Urine Urobilinogen (Negative) Ur Leukocyte Esterase (Negative) Stl C. diff Tox B Gene (Neg) Thyroid Antimicrosomal Thyroglobulin Antibody Anaplasma Smear See Comment Lyme Disease IgG Ab Lyme Disease IgM Ab COVID-19 Eval Order SARS-CoV-2 (PCR) (Negative) Monoscreen Influ A Molecular Assay (Negative) Influ B Molecular Assay (Negative) Medications Administered Current Inpatient Medications Doxycycline Hyclate (Doxycycline Hyclate 100 Mg Cap) 100 mg PO BID [facility] Stop: 05/14/21 09:44 Last Admin: 05/12/21 11:25 Dose: 100 mg Documented by: Metoprolol Tartrate (Metoprolol Tartrate 25 Mg Tab) 25 mg PO QAM JOAN Stop: 06/11/21 09:44 Last Admin: 05/12/21 11:24 Dose: 25 mg Documented by: Ondansetron HCl (Ondansetron Inj 2 Mg/Ml 2 Ml Vial) 4 mg IV Q4H PRN PRN Reason: Nausea Stop: 06/11/21 11:25 Last Admin: 05/12/21 12:01 Dose: 4 mg Documented by: Resident Activity Tracking Resident Involvement: Resident Care Provided Care Provided: Adult Hospital Medicine
[2021-05-12] MEDS: DOXYCYCLINE HYCLATE 100 MG CAP PO SCH ×2 (11:25→20:42)
[2021-05-12] MEDS ORDERED: ONDANSETRON INJ 2 MG/ML 2 ML VIAL IV PRN (11:26)
[2021-05-12] MEDS ORDERED: METOPROLOL SUCC 25MG EXT REL TAB PO SCH (15:45)
[2021-05-12] MEDS: METOPROLOL TARTRATE 25 MG TAB PO SCH (16:47)
[2021-05-12] MEDS ORDERED: CAFFEINE PO PRN (22:52)
[2021-05-12] MEDS ORDERED: ACETAMINOPHEN PO PRN (22:52)
[2021-05-12] MEDS ORDERED: ASPIRIN PO PRN (22:52)
[2021-05-13] MEDS: METOPROLOL TARTRATE 25 MG TAB PO SCH ×2 (00:05→09:25)
--- NOTE | 2021-05-13 04:36 | Billing Data ---
Date of Service May 13, 2021 Coding Level of Care Code 16389 OBS Care - Level 3
--- NOTE | 2021-05-13 06:31 | Electrocardiogram Report ---
Test Reason : Blood Pressure : / mmHG Vent. Rate : 106 BPM Atrial Rate : 106 BPM P-R Int : 128 ms QRS Dur : 072 ms QT Int : 318 ms P-R-T Axes : 071 029 036 degrees QTc Int : 422 ms Poor data quality, interpretation may be adversely affected Sinus tachycardia Otherwise normal ECG When compared with ECG of 05-MAY-2021 20:19, No significant change was found Confirmed by Reggie Rocha ([id number]) on 05/13/2021 6:30:44 AM Referred By: REFERRED SELF Confirmed By:Reggie Rocha
[2021-05-13 07:38] LABS: Basophils # (auto) 0.03 K/uL (0-0.2); Basophils % (auto) 0.6 %; Eosinophils # (auto) 0.13 K/uL (0-0.5); Eosinophils % (auto) 2.5 %; Hematocrit (blood only) 33.5 % (37-47); Hemoglobin 10.9 g/dL (12.0-16.0); Immature Granulocytes # (auto) 0.02 K/uL (0.00-0.02); Immature Granulocytes % (auto) 0.4 %; Lymphocytes # (auto) 2.15 K/uL (1.2-3.4); Lymphocytes % (auto) 41.4 %; Mean Corpuscular Hemoglobin 30.1 pg (25-34); Mean Corpuscular Hgb Conc 32.5 g/dL (32-36); Mean Corpuscular Volume 92.5 fL (80-100); Mean Platelet Volume 8.6 fL (7.4-10.4); Monocytes # (auto) 0.48 K/uL (0.11-0.59); Monocytes % (auto) 9.2 %; Neutrophils # (auto) 2.38 K/uL (1.4-6.5); Neutrophils % (auto) 45.9 %; Platelet Count 658 K/uL (130-400); RDW Standard Deviation 53.5 fL (36.4-46.3); Red Blood Count 3.62 M/uL (4.2-5.4); White Blood Count 5.19 K/uL (4.8-10.8)
[2021-05-13 08:01] LABS: BUN Creatinine Ratio 20.4 (10-20); Calcium 9.8 mg/dl (8.5-10.1); Creatinine Clr Calc Pharmacy 81.7 ml/min; Est GFR (African American) 112.6 ml/min; Est GFR (Non-African American) 97.2 ml/min; Potassium 4.1 mmol/L (3.5-5.1)
[2021-05-13] MEDS: DOXYCYCLINE HYCLATE 100 MG CAP PO SCH (09:25)
[2021-05-13] MEDS ORDERED: ATENOLOL 25 MG TABLET PO SCH (12:00)
--- NOTE | 2021-05-13 13:49 | Discharge Summary ---
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 Recently started on augmentin for persistent fevers and chills. Says she's been feel her heart race more frequently, and gets short of breath when walking outside, when lifting things. extensive hx of persistent headaches, numbness and tingling in fingers due to raynauds. Principal Diagnosis Symptomatic hyperthyroidism Discharge Exam Constitutional WD/WN, vitals as above Eyes PERRL, conjunctivae normal, anicteric sclerae Neck Thyroid: + thyromegaly and + thyroid tender Respiratory normal respiratory effort and + prolonged expiratory phase; no respiratory distress and no labored breathing Auscultation: no crackles, no rales, no rhonchi and no wheezes Cardiovascular Rate/Rhythm: regular rate and regular rhythm Heart Sounds: no gallop, no murmur and no cardiac rub Vessels: normal peripheral pulses; no JVD Extremities: no edema Skin no rashes, warm and dry Psychiatric Orientation: alert and oriented x 3 Discharge Data Allergies Allergy/AdvReac Type Severity Reaction Status Date / Time bee venom protein (honey bee) Allergy Severe ITCHY Verified 05/12/21 00:32 HIVES ALL OVER, TONGUE SWELLED procaine [From Novocain] AdvReac Severe PALPITATIONS/ Verified 05/12/21 00:32 PASSED OUT Consultations 05/12/21 02:09 ED Decision to Admit Stat Ordered Studies 05/12/21 01:32 CT angio chest PE protocol Urgent 05/12/21 01:50 CT head/brain wo con Urgent CT soft tissue neck w con Urgent Hospital Course (1) Elevated serum free T4 level: 66 yo F with persistent fevers, chills, nausea, vomiting, abdominal pain, and cough with recent thrombocytosis causing further conversations about potential CLL Symptomatic hyperthyroidism: - Etiology uncertain at this time potentially secondary to viral thyroiditis versus autoimmune thyroiditis - TSH <0.0005, Free T4 5.93, Free T3 12.66 - Thyroid stimulating immunoglobulin, Thyroid antimicrosomal, Thyroglobulin antibody sent - unlikely thyroid storm given normal blood pressures. Not taking exogenous levothyroxine. - CT soft tissue demonstrating thyromegaly - ESR, CRP elevated on admission - Given persistent tachycardia, with significant increase with minimal exertion trialed metoprolol while inpatient - Transitioned metoprolol to atenolol 25 mg daily, would consider escalation of dose as tolerated - Consideration of corticosteroids versus potential methimazole dosing if continuing to have no response - To have follow-up in [facility] clinic in the next 2 days - Arranging for nuclear medicine thyroid scan to be done as outpatient - Patient has follow-up with endocrine surgery (Dr. Nicole of [facility]) on 05/18 for further evaluation Fever: - Potential that this represents portion of thyrotoxicosis - No documented fevers either since admission or in outpatient clinic; however, reported T-max of 103.8 over the last 10 days - Received Covid vaccinations (last dose in January) and Covid negative x2 since symptom onset - WBC elevated, UA negative, - Lyme negative, Anaplasma smear negative, mono negative, flu negative, urinalysis negative - Blood cultures negative after over 36 hours - Discontinued Augmentin in the setting of new diarrhea - Continue doxycycline given high prevalence of tickborne illnesses in this area Diarrhea: - Patient reported multiple loose stool since initiation of Augmentin on 05/08 - Continuing to have episodes while in hospital - C. difficile negative - Potentially secondary to viral process - Consideration of further potential diarrheal sources if no resolution in coming weeks Thrombocytosis: - Platelets elevated on admission to [facility] - Patient had appointment at [facility] in February, had previously seen him approximately 15 years ago for similar concerns - Recommend continued evaluation with Dr. Negro in regular follow-up Elevated D-dimer: - 730 on admission - CTA chest negative for PE (2) Fever: (3) Diarrhea: Total Time Total Time Spent Total Time Spent (In Minutes): >30 Discharge Plan Discharge Items Patient Disposition: Home - Self-Care Reason For Visit: FEVER, HYPERTHYROIDISM Discharge Diagnosis: Symptomatic hyperthyroidism Activity: Per Instructions section Non-emergency contact: Primary Care Provider Call non-emergency contact if: you have any medication questions, your symptoms worsen and you have a fever Follow-up/Referrals: Rosas Dhillon MD [Resident] - (To have follow-up in the next 2 days) Arnulfo Dolan MD [Primary Care Provider] - Diet: Regular Addtl Attending Provider Instructions: You were seen for concerns of continued symptoms of her hyperthyroidism, and in the setting of recent fever. During this evaluation it was continued to be discovered that your thyroid function remains abnormal at this time. For this we have started you on medications to limit some of the side effects of hyperthyroidism. At this time it is still uncertain the exact source of what caused this hyperthyroidism, however potential viral versus autoimmune processes has been explored. Some of this testing will take time to result. In the coming days you will have follow-up with [facility] office. This should be arranged you should receive a call for appointment on Friday. At that time additional conversations will be on whether or not corticosteroids should be started, or if increase in your current medications should happen. Additionally you should be receiving a call in regards to scheduling the nuclear medicine scan of your thyroid from the [facility] offices. Pending Studies at Discharge: No Stand-Alone Forms: [facility], Smoking Cessation Medications and DC Order Prescriptions: New doxycycline hyclate 100 mg Capsule 100 mg PO BID 10 Days Qty: 20 RF: 0 atenolol 25 mg Tablet 25 mg PO QAM 30 Days Qty: 30 RF: 0 Continued multivitamin Tablet 1 tab PO DAILY RF: 0 vitamin B complex Tablet 1 tab PO DAILY RF: 0 cholecalciferol (vitamin D3) [Vitamin D3] 125 mcg (5,000 unit) Tablet 250 mcg PO Q OTHER DAY RF: 0 codeine-guaifenesin 10-100 mg/5 mL Liquid 5 ml PO Q4H PRN (Reason: Cough) RF: 0 epinephrine [EpiPen 2-Renan] 0.3 mg/0.3 mL auto-injector 0.3 mg IM DIRECTED PRN (Reason: Allergic Reaction) RF: 0 albuterol sulfate 90 mcg/actuation Hfa Aerosol Inhaler 2 puff INHALATION Q6H PRN (Reason: Shortness Of Breath) RF: 0 Changed Excedrin Extra Strength 250-250-65 mg Tablet 1 tab PO Q6H PRN (Reason: HEADACHE/PAIN) Qty: 0 RF: 0 Discontinued amoxicillin-pot clavulanate [Augmentin] 875-125 mg Tablet 1 tab PO BID RF: 0 Discharge Orders: Discharge Order (Routine); Ordered 05/13/21 Ordered By: Rosas Dhillon Admission Data Admit Date/Time: 05/12/21 03:50 Attending Provider: Nhi Ugarte Admit Provider: Pau Ambriz Primary Care Provider: Arnulfo Dolan Other Providers: Hero Richards Other Interventions: Discharge Summary Assessment (RN) Last Done: 05/13/21 15:32 Supervising Physician Co-Signing Physician Notes Resident Physician Supervision Note: I independently interviewed and examined the patient and verified the diaz history and physical, reviewed labs and image studies and agree with resident Dr. Dhillon findings and care plan. Resident Activity Tracking Resident Involvement: Resident Care Provided Care Provided: Adult Hospital Medicine
[2021-05-13] MEDS ORDERED: METOPROLOL TARTRATE 50 MG TAB PO SCH (15:00)
[2021-05-16 15:41] LABS: Microsomal Ab 6 IU/mL (<9); TSI <89 % baseline (<140); Thyroglobulin Antibodies <1 IU/mL (< or = 1)
== END 2021-05-13 15:56 | disposition home or self-care (01) ==
LOC: ED 22:49 → 2S 22:49 → SUATTDRO 05-12 03:50 → 2S 05-12 04:40